=== PATIENT | female | born 2000 | race Two or more races ===

== ENCOUNTER 2022-12-07 08:32 | Inpatient (IN) | payer OTHER ==
[~2022-12-07] VITALS: Ht 160 cm; Wt 75.3 kg
[2022-12-07] MEDS ORDERED: PRENATABS RX T1 EACH PO (12:50)
== END 2022-12-08 22:52 | disposition home or self-care (01) | DRG 806 ==
LOC: LDR 08:32 → OB/GYN 21:34 → SURH 23:50
PROVIDERS: ADMIT Obstetrics & Gynecology; ATTEND Obstetrics & Gynecology
PROC: 10E0XZZ Delivery of Products of Conception, External Approach (ICD-10-PCS; principal; 2022-12-07)
PROC: 0UQMXZZ Repair Vulva, External Approach (ICD-10-PCS; 2022-12-07)
PROC: 3E0P7VZ Introduction of Hormone into Female Reproductive, Via Natural or Artificial Opening (ICD-10-PCS; 2022-12-07)
PROC: 3E033VJ Introduction of Other Hormone into Peripheral Vein, Percutaneous Approach (ICD-10-PCS; 2022-12-07)
PROC: 4A1HXCZ Monitoring of Products of Conception, Cardiac Rate, External Approach (ICD-10-PCS; 2022-12-07)
DX: O71.82 Other specified trauma to perineum and vulva (principal); O36.4XX0 Maternal care for intrauterine death, not applicable or unspecified; Z37.1 Single stillbirth; Z3A.35 35 weeks gestation of pregnancy; Z20.822 Contact with and (suspected) exposure to COVID-19